=== PATIENT | male | born 1980 | race Caucasian/White ===

== ENCOUNTER 2024-06-24 11:52 | Emergency (ER) | payer OTHER, SELFPAY ==
[2024-06-24 12:14] VITALS: BP 130/77; PULSE 56; TEMP 36.6; O2SAT 99; BMI 26.5
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
== END 2024-06-24 13:22 | disposition home or self-care (01) ==
PROVIDERS: Emergency Provider Emergency Medicine
DX: S53.491A Other sprain of right elbow, initial encounter (principal); S43.491A Other sprain of right shoulder joint, initial encounter; S40.811A Abrasion of right upper arm, initial encounter; V18.0XXA Pedal cycle driver injured in noncollision transport accident in nontraffic accident, initial encounter; S50.811A Abrasion of right forearm, initial encounter
CPT/HCPCS: 73030; 73080; 99283

== ENCOUNTER 2024-08-18 16:40 | Emergency (ER) | payer OTHER, SELFPAY ==
[2024-08-18 16:44] VITALS: BP 108/71; PULSE 66; TEMP 37.1; O2SAT 97; BMI 27.2
--- NOTE | 2024-08-18 16:50 | PC.NURSE ---
h/o Gout and pt states this is his typical Gout flare up
--- NOTE | 2024-08-18 16:51 | ED.EXTPRO1 ---
HPI - Extremity Problem General Chief complaint: Extremity Problem, Nontraumatic Stated complaint: right lower extremity issues Time Seen by Provider: 08/18/24 16:46 Source: patient Mode of arrival: walk-in History of Present Illness HPI Narrative: Patient is a 44-year-old male presents to the ER with concerns of acute gout flare to his right ankle. Patient states he has had this in the past and he is on allopurinol. He denies any recent injury or fever he admits to eating a lot of meat over the holiday weekend and woke up yesterday with pain and swelling similar to prior gout attacks but tried to walk it off. Patient states he does not drink alcohol. He notes continued pain today and was concerned about returning to work. He did hold his allopurinol as previously instructed by his family doctor. Patient appears in no distress but notes moderate pain right ankle worse on palpation. MD Complaint: Reports joint swelling and joint pain; Denies cold extremity Onset (ago): day(s) (2) Pain Consistency: Denies constant or intermittent Location: Reports right Quality: Reports aching Related Data Previous Rx's ?Medication ?Instructions ?Recorded colchicine 0.6 mg capsule 0.6 mg PO DAILY 1 day #1 cap 08/18/24 hydrocodone 5 mg-acetaminophen 325 1 tab PO Q6H PRN pain 2 days #8 08/18/24 mg tablet tabs prednisone 20 mg tablet 40 mg (2 x 20 mg) PO DAILY 5 days 08/18/24 #10 tabs Allergies Allergy/AdvReac Type Severity Reaction Status Date / Time No Known Drug Allergies Allergy Verified 06/24/24 12:13 Review of Systems ROS Constitutional Denies: fever or chills Eyes Denies: change in vision or blurry vision Ears, nose, mouth, and throat Denies: throat pain or neck pain Cardiovascular Denies: chest pain or palpitations Respiratory Denies: shortness of breath, cough or wheezing Gastrointestinal Denies: abdominal pain, nausea or vomiting Musculoskeletal Reports: joint pain (Right ankle); Denies: back pain, neck pain, extremity pain or extremity swelling Integumentary/Breast Denies: rash or itching Neurological Denies: headache Psychiatric Denies: anxiety or mood swings Endocrine Denies: excessive urination PFSH PFSH Social History Little interest or pleasure in doing things: not at all Feeling down, depressed, or hopeless: not at all Exam Narrative Exam Narrative: Vital signs reviewed and nurse's notes. The patient is not hypoxic. General: Alert, no acute distress, patient resting comfortably Skin: warm, intact, no pallor noted Head: Normocephalic, atraumatic Eye: Normal conjunctiva, no exudates Respiratory: No acute distress, lungs CTA Musculoskeletal: No evidence of deformity to ankle, there is minimal amount of swelling. There is no ecchymosis. No erythema or warmth noted. Allodynia present diffuse to the ankle. Compartments are soft. No focal bony tenderness and denies pain with syndesmotic compression of the tib-fib. DP and PT pulses are intact 2+. Normal sensation, normal capillary refill less than 2 seconds. There is no cyanosis or mottling noted. The patient has pain or tenderness to the right knee. The patient has no laxity with varus or valgus stressing. The patient has negative anterior drawer and Abeba testing. The patient was able to flex and extend although with pain. Patient was able to extend leg off the cart without difficulty. No tenderness noted to the 5th MT, midfoot, or proximal fibular area. There is no pain with calcaneal squeeze, achilles tendon is intact and no defect is palpated. The patient has no pelvic instability. The patient has no shortening or rotation noted to the bilateral lower extremities. Neurological: alert and orient x4, normal sensory and motor observed. Psychiatric: Cooperative Constitutional Vital Signs, click to edit/add: Last Vital Signs Temp 98.7 F 08/18/24 16:44 Pulse 66 08/18/24 16:44 Resp 18 08/18/24 16:44 BP 108/71 08/18/24 16:44 Pulse Ox 97 08/18/24 16:44 O2 Del Method Room Air 08/18/24 16:44 Course Vital Signs Vital signs: Vital Signs Temperature 98.7 F 08/18/24 16:44 Pulse Rate 66 08/18/24 16:44 Respiratory Rate 18 08/18/24 16:44 Blood Pressure 108/71 08/18/24 16:44 Pulse Oximetry 97 08/18/24 16:44 Oxygen Delivery Method Room Air 08/18/24 16:44 Temperature 98.7 F 08/18/24 16:44 Pulse Rate 66 08/18/24 16:44 Respiratory Rate 18 08/18/24 16:44 Blood Pressure 108/71 08/18/24 16:44 Pulse Oximetry 97 08/18/24 16:44 Oxygen Delivery Method Room Air 08/18/24 16:44 MDM - Extremity (Nontraumatic) MDM Narrative Medical decision making narrative: Patient is a pleasant 44-year-old male presents to the ER with concerns of right ankle pain. He denies injury. Admits her symptoms of prior gout flare which she has had in the same ankle. Patient notes that his diet likely contributed to this.. Admits that he was eating a lot of meat. He reports prior episodes improved with prednisone and colchicine. He also has appreciated some pain medicine in the past to help with rest and sleep. We discussed his presentation and we will give him first dose of medication here in case he cannot reach the pharmacy before they closed on the weekend. We discussed holding his allopurinol until symptoms resolved. Diet modifications. Patient agreeable to a work note for tomorrow to give symptoms a chance to subside. He denies any fall or injury and declines the need for x-rays and there is no signs or symptoms of infection. The patient is to followup with primary care physician in next 2-3 days or to return to the emergency department should any of the signs or symptoms worsen or new symptoms develop. Patient had questions answered. The patient agrees with the following Diagnosis and Treatment plan and the patient will be discharged home. Discharge Plan Discharge Chief Complaint: Extremity Problem, Nontraumatic Clinical Impression: Acute gout of right ankle Patient Disposition: Home, Self-Care Time of Disposition Decision: 16:52 Condition: Good Mode of Transportation: Private Vehicle Prescriptions / Home Meds: New prednisone 20 mg tablet 40 mg PO DAILY 5 Days Qty: 10 0RF hydrocodone-acetaminophen 5-325 mg tablet 1 tab PO Q6H PRN (Reason: pain) 2 Days Qty: 8 0RF colchicine 0.6 mg capsule 0.6 mg PO DAILY 1 Days Qty: 1 0RF Rx Instructions: take this evening 08/18/24 if pain still present. Print Language: Luxembourgish Instructions: Low Purine Diet (ED), Gout (ED) Additional Instructions: Follow up with your doctor in 3-5 days. Do not work with pain medicine Referrals: Physician,Non-Staff, MD [Primary Care Provider] - 1 week
[2024-08-18] MEDS: PREDNISONE 20 MG TABLET 40 MG PO (17:07)
[2024-08-18] MEDS: COLCHICINE 0.6 MG TABLET 1.2 MG PO (17:07)
[2024-08-18] MEDS: KETOROLAC TROMETHAMINE 60 MG/2 ML VIAL IM (17:08)
== END 2024-08-18 17:16 | disposition home or self-care (01) ==
PROVIDERS: Emergency Provider Emergency Medicine
DX: M10.9 Gout, unspecified (principal); Z79.899 Other long term (current) drug therapy
CPT/HCPCS: 96372; 99284; J1885; J7512

== ENCOUNTER 2024-09-23 11:36 | Emergency (ER) | payer OTHER, SELFPAY ==
[2024-09-23 11:40] VITALS: BP 122/76; PULSE 70; TEMP 36.7; O2SAT 100; BMI 27.2
--- NOTE | 2024-09-23 11:50 | ED.EXTPRO1 ---
HPI - Extremity Problem General Chief complaint: Extremity Problem, Nontraumatic Stated complaint: LOWER EXTERMITY PAIN L KNEE Time Seen by Provider: 09/23/24 11:46 Source: patient Mode of arrival: walk-in History of Present Illness HPI Narrative: Patient presents the ED with a complaint of left knee pain which started 2 days ago. He states he does have a longstanding history of gout. He states he drank alcohol 3 days ago and that started flaring up. He states the pain has flared up similarly in the past. It has been in the same area. He denies any injury. He denies any fever or chills he denies any other pain in his extremity. No numbness or tingling down the leg. He is ambulatory. He denies any cracking or popping in the joint. He denies any other complaints here today. Complaint: Reports extremity swelling Onset (ago): day(s) Pain Consistency: Reports constant Location: Reports left and knee Quality: Reports aching and constant Related Data Previous Rx's ?Medication ?Instructions ?Recorded prednisone 20 mg tablet 20 mg PO BID 5 days #10 tabs 09/23/24 Allergies Allergy/AdvReac Type Severity Reaction Status Date / Time No Known Drug Allergies Allergy Verified 06/24/24 12:13 PFSH PFSH Social History Little interest or pleasure in doing things: not at all Feeling down, depressed, or hopeless: not at all Exam Constitutional Vital Signs, click to edit/add: Last Vital Signs Temp 98.1 F 09/23/24 11:40 Pulse 70 09/23/24 11:40 Resp 18 09/23/24 11:40 BP 122/76 09/23/24 11:40 Pulse Ox 100 09/23/24 11:40 O2 Del Method Room Air 09/23/24 11:40 Documenting provider has reviewed patient's vital signs: yes Common normals: no apparent distress, average body habitus, oriented x3, no limitations, healthy appearing, alert and well nourished Neck & C-Spine Common normals: full ROM Cervical spine: cervical ROM normal Respiratory Common normals: normal respiratory effort and clear to auscultation bilaterally Cardio Common normals: regular rate, regular rhythm and no murmurs Back & Pelvis Common normals: thoracic and lumbar spine normal to inspection, no thoracic nor lumbar tenderness, thoraco-lumbar ROM normal and straight leg raise negative bilaterally Extremity Common normals: full ROM, normal capillary refill, no joint enlargement, no calf tenderness and no pedal edema General: normal exam except as noted Right lower extremity: knee joint; no findings for hip joint, no findings for upper leg, no findings for lower leg, no findings for ankle joint and no findings for foot and digits Neuro Common normals: oriented x3 Sensorium/orientation: awake, alert and oriented to person Psych Common normals: mental status grossly normal, thought process normal, cooperative, affect normal and speech normal Course Vital Signs Vital signs: Vital Signs Temperature 98.1 F 09/23/24 11:40 Pulse Rate 70 09/23/24 11:40 Respiratory Rate 18 09/23/24 11:40 Blood Pressure 122/76 09/23/24 11:40 Pulse Oximetry 100 09/23/24 11:40 Oxygen Delivery Method Room Air 09/23/24 11:40 Temperature 98.1 F 09/23/24 11:40 Pulse Rate 70 09/23/24 11:40 Respiratory Rate 18 09/23/24 11:40 Blood Pressure 122/76 09/23/24 11:40 Pulse Oximetry 100 09/23/24 11:40 Oxygen Delivery Method Room Air 09/23/24 11:40 MDM - Extremity (Nontraumatic) MDM Narrative Medical decision making narrative: Patient presents the ED with a complaint of left knee pain which started 2 days ago. He states he does have a longstanding history of gout. He states he drank alcohol 3 days ago and that started flaring up. He states the pain has flared up similarly in the past. It has been in the same area. He denies any injury. He denies any fever or chills he denies any other pain in his extremity. No numbness or tingling down the leg. He is ambulatory. He denies any cracking or popping in the joint. He denies any other complaints here today. Patient is alert and oriented and resting comfortably on the bed. His right lower extremity is unaffected all of his joints move through range of motion without difficulty he has no palpable tenderness in the hip knee or ankle. Patient's left lower extremity shows no tenderness in the hip joint with good range of motion of the left hip. In his left knee he has tenderness around the patellar tendon. He does have tenderness with movement of the patella. He has no joint line tenderness. He is able to move through range of motion with resistance however knee extension against resistance is painful for him. He does not have any redness or warmth. No signs of joint infection. No calf tenderness. Pulses are equal bilaterally. Good sensation distally. Patient is ambulatory. Patient is not currently on any medication as he does not have a PCP. I refer him to PCP today and advised him to follow-up with soon as possible. Differential includes patellar tendinitis, gout, joint infection, strain, sprain, underlying trauma, Kaleva-Schlatter's, patellar strain. ?Medication ?Instructions ?Recorded colchicine 0.6 mg capsule 0.6 mg PO DAILY 1 day #1 cap 08/18/24 hydrocodone 5 mg-acetaminophen 325 1 tab PO Q6H PRN pain 2 days #8 08/18/24 mg tablet tabs prednisone 20 mg tablet 40 mg (2 x 20 mg) PO DAILY 5 days 08/18/24 #10 tabs Discharge Plan Discharge Stand Alone Forms: Work/School Release Chief Complaint: Extremity Problem, Nontraumatic Clinical Impression: Anterior knee pain Qualifiers: Laterality: left Qualified Code(s): M25.562 - Pain in left knee Patient Disposition: Home, Self-Care Time of Disposition Decision: 12:02 Condition: Good Prescriptions / Home Meds: New prednisone 20 mg tablet 20 mg PO BID 5 Days Qty: 10 0RF Print Language: Indonesian Instructions: Knee Pain (ED) Referrals: Migel Fontenot MD [Physician, Family Practice] - 1 week Referral Note: call for establish of PCP
== END 2024-09-23 12:15 | disposition home or self-care (01) ==
PROVIDERS: Emergency Provider Emergency Medicine
DX: M25.562 Pain in left knee (principal)
CPT/HCPCS: 99283

== ENCOUNTER 2024-10-04 17:58 | Emergency (ER) | payer OTHER, SELFPAY ==
[2024-10-04 18:28] VITALS: BP 121/74; PULSE 70; TEMP 36.6; O2SAT 99; BMI 27.2
--- NOTE | 2024-10-04 20:39 | ED_ITS ---
HPI - Extremity Problem General Chief complaint: Extremity Problem, Nontraumatic Stated complaint: RIGHT KNEE AND ANKLE/ HAS GOUT Time Seen by Provider: 10/04/24 20:27 Source: patient Mode of arrival: walk-in Limitations: no limitations History of Present Illness HPI Narrative: Patient presents to the ED with a complaint of left knee pain which started 3 days ago. He states he does have a longstanding history of gout. He states he believes working out in the heat triggers this issue. He states the pain has flared up similarly in the past. It has been in the same are of the right knee and ankle. He denies any injury. He denies any fever or chills he denies any other pain in his extremity. No numbness or tingling down the leg. He is ambulatory. He denies any cracking or popping in the joint. He denies any other complaints here today. Last episode was seen here on 09/23/2024 Related Data Previous Rx's ?Medication ?Instructions ?Recorded prednisone 20 mg tablet 20 mg PO BID 5 days #10 tabs 09/23/24 colchicine 0.6 mg capsule 0.6 mg PO DAILY #4 caps 09/14 04/09 indomethacin 50 mg capsule 50 mg PO BID PRN pain in addison int 10/04/24 #14 caps Allergies Allergy/AdvReac Type Severity Reaction Status Date / Time No Known Drug Allergies Allergy Verified 10/04/24 18:27 PFSH PFSH Social History Little interest or pleasure in doing things: not at all Feeling down, depressed, or hopeless: not at all Exam Constitutional Vital Signs, click to edit/add: Last Vital Signs Temp 97.8 F 10/04/24 18:28 Pulse 70 10/04/24 18:28 Resp 16 10/04/24 18:28 BP 121/74 10/04/24 18:28 Pulse Ox 99 10/04/24 18:28 O2 Del Method Room Air 10/04/24 18:28 Documenting provider has reviewed patient's vital signs: yes Common normals: no apparent distress, average body habitus, oriented x3 and no limitations Chest Common normals: inspection of chest normal and palpation of chest normal Respiratory Common normals: normal respiratory effort and clear to auscultation bilaterally Back & Pelvis Common normals: no CVA tenderness, thoracic and lumbar spine normal to inspection, no thoracic nor lumbar tenderness, thoraco-lumbar ROM normal and straight leg raise negative bilaterally Extremity General: normal exam except as noted Right lower extremity: knee joint (pain and swelling) and ankle joint (pain and swelling) Neuro Common normals: oriented x3 Course Vital Signs Vital signs: Vital Signs Temperature 97.8 F 10/04/24 18:28 Pulse Rate 70 10/04/24 18:28 Respiratory Rate 16 10/04/24 18:28 Blood Pressure 121/74 10/04/24 18:28 Pulse Oximetry 99 10/04/24 18:28 Oxygen Delivery Method Room Air 10/04/24 18:28 Temperature 97.8 F 10/04/24 18:28 Pulse Rate 70 10/04/24 18:28 Respiratory Rate 16 10/04/24 18:28 Blood Pressure 121/74 10/04/24 18:28 Pulse Oximetry 99 10/04/24 18:28 Oxygen Delivery Method Room Air 10/04/24 18:28 MDM - Extremity (Nontraumatic) MDM Narrative Medical decision making narrative: Patient presents to the ED with a complaint of left knee pain which started 3 days ago. He states he does have a longstanding history of gout. He states he believes working out in the heat triggers this issue. He states the pain has flared up similarly in the past. It has been in the same are of the right knee and ankle. He denies any injury. He denies any fever or chills he denies any other pain in his extremity. No numbness or tingling down the leg. He is ambulatory. He denies any cracking or popping in the joint. He denies any other complaints here today. Last episode was seen here on 09/23/2024 Patient is alert and oriented and resting comfortably in the chair. His left lower extremity is unaffected all of his joints move through range of motion without difficulty he has no palpable tenderness in the hip knee or ankle. Patient's right lower extremity shows no tenderness in the hip joint with good range of motion of the left hip. In his right knee he has tenderness around the patellar tendon. He does have tenderness with movement of the patella. He has no joint line tenderness. He is able to move through range of motion with resistance however knee extension against resistance is painful for him. He does not have any redness or warmth. No signs of joint infection. No calf tenderness. Pulses are equal bilaterally. Good sensation distally. Patient is ambulatory. NO calf tenderness, redness, or signs of DVT. Patient is not currently on any medication as he does not have a PCP. I refer him to PCP today and advised him to follow-up with soon as possible. Differential includes patellar tendinitis, gout, joint infection, strain, sprain, underlying trauma, [place]-Schlatter's, patellar strain. Strongly recommended follow-up with PCP as this would be better management long-term. He has been seen multiple times here in this ED for this type of symptom. He did ask for a work note as well. That was provided. I discussed with him he was already on steroids in last month so I do not want to continue prednisone. I will give him some Indocin and the colchicine. He is to return with significant changes or concerns and contact PCP immediately for follow-up Discharge Plan Discharge Chief Complaint: Extremity Problem, Nontraumatic Clinical Impression: Acute knee pain, History of acute gouty arthritis Patient Disposition: Home, Self-Care Time of Disposition Decision: 20:45 Condition: Good Prescriptions / Home Meds: New colchicine 0.6 mg capsule 0.6 mg PO DAILY Qty: 4 0RF Rx Instructions: two capsules as loading dose then 1 tablet every 1-2 hours. Max of three doses. indomethacin 50 mg capsule 50 mg PO BID PRN (Reason: pain in joint ) Qty: 14 0RF Rx Instructions: administer with food or milk No Action prednisone 20 mg tablet 20 mg PO BID 5 Days Qty: 10 0RF Print Language: Estonian Additional Instructions: Strongly recommend PCP follow up as this issue has had multiple visits at this point. The PCP would be better at helping these flare ups from coming back and give you consistent follow up. however, please return with any worsening or concerning symptoms at this time. Thank you for allowing [facility] ED to participate in your care. Referrals: Physician,Non-Staff, [Primary Care Provider] - 1 week Discharge Date/Time: 10/04/24 21:02
== END 2024-10-04 21:02 | disposition home or self-care (01) ==
PROVIDERS: Emergency Provider Internal Medicine
DX: M25.569 Pain in unspecified knee (principal)
CPT/HCPCS: 99283

== ENCOUNTER 2024-10-29 06:59 | Emergency (ER) | payer OTHER, SELFPAY ==
[2024-10-29 07:05] VITALS: BP 119/82; PULSE 62; TEMP 36.6; O2SAT 98; BMI 27.2
--- NOTE | 2024-10-29 07:23 | ED.EXTPRO1 ---
HPI - Extremity Problem General Chief complaint: Extremity Problem, Nontraumatic Stated complaint: RT KNEE/ANKLE PAIN Time Seen by Provider: 10/29/24 07:12 Source: patient Mode of arrival: walk-in Limitations: no limitations History of Present Illness HPI Narrative: The patient is a 44-year-old male is coming to the ER for what he is saying is a gout attack according to the patient the patient have a history of taking allopurinol as a baseline but since he moved here from [place] he does not have his main medication, the patient mentioned that he has been having flareup almost every other month, the patient have right knee and right ankle pain He has been decreasing his beer intake and he still eats red meat daily, the patient hydrate very well as well He denies any fall or trauma Related Data Previous Rx's ?Medication ?Instructions ?Recorded prednisone 20 mg tablet 20 mg PO BID 5 days #10 tabs 09/23/24 colchicine 0.6 mg capsule 0.6 mg PO DAILY #4 caps 10/04/24 indomethacin 50 mg capsule 50 mg PO BID PRN pain in joint 10/04/24 #14 caps allopurinol 100 mg tablet 100 mg PO DAILY #30 tabs 10/29/24 colchicine 0.6 mg tablet 0.6 mg PO BID PRN pain #10 tabs 10/29/24 prednisone 20 mg tablet 40 mg (2 x 20 mg) PO DAILY 5 days 10/29/24 #10 tabs Allergies Allergy/AdvReac Type Severity Reaction Status Date / Time No Known Drug Allergies Allergy Verified 10/29/24 07:05 Review of Systems ROS Status of ROS 10 or more systems reviewed and unremarkable except as noted in history and below PFSH PFSH Social History Little interest or pleasure in doing things: not at all Feeling down, depressed, or hopeless: not at all Exam Narrative Exam Narrative: Nurses notes and vital signs reviewed and patient is not hypoxic. General: Well-appearing and in no apparent distress. Skin: Warm, dry, no pallor noted. No rash. Lower extremity: The patient have right knee and ankle mild inflammation no redness no hotness no ecchymosis and the patient have a mild effusion. With full range of movement in the ankle and the knee Constitutional Vital Signs, click to edit/add: Last Vital Signs Temp 98 F 10/29/24 07:05 Pulse 62 10/29/24 07:05 Resp 16 09/16/25 07:05 BP 119/82 10/29/24 07:05 Pulse Ox 98 10/29/24 07:05 O2 Del Method Room Air 10/29/24 07:05 Course Vital Signs Vital signs: Vital Signs Temperature 98 F 10/29/24 07:05 Pulse Rate 62 10/29/24 07:05 Respiratory Rate 16 10/29/24 07:05 Blood Pressure 119/82 10/29/24 07:05 Pulse Oximetry 98 10/29/24 07:05 Oxygen Delivery Method Room Air 10/29/24 07:05 Temperature 98 F 10/29/24 07:05 Pulse Rate 62 10/29/24 07:05 Respiratory Rate 16 10/29/24 07:05 Blood Pressure 119/82 10/29/24 07:05 Pulse Oximetry 98 10/29/24 07:05 Oxygen Delivery Method Room Air 10/29/24 07:05 MDM - Extremity (Nontraumatic) MDM Narrative Medical decision making narrative: The patient presentation could be secondary to gout attack although it is mostly arthritis as well The patient was started on colchicine and prednisone and discharged home to take allopurinol after 10 days from this presentation Patient referred to the primary care as outpatient Instructed about continuous hydration and decreasing red meat intake The patient is to follow up with primary care physician in next 2-3 days or to return to the emergency department should any of the signs or symptoms worsen or new symptoms develop. The patient agrees with the following Diagnosis and Treatment plan and the patient will be discharged home. Discharge Plan Discharge Chief Complaint: Extremity Problem, Nontraumatic Clinical Impression: Gout attack Patient Disposition: Home, Self-Care Time of Disposition Decision: 07:23 Condition: Good Mode of Transportation: Private Vehicle Prescriptions / Home Meds: New prednisone 20 mg tablet 40 mg PO DAILY 5 Days Qty: 10 0RF colchicine 0.6 mg tablet 0.6 mg PO BID PRN (Reason: pain) Qty: 10 0RF allopurinol 100 mg tablet 100 mg PO DAILY Qty: 30 0RF No Action prednisone 20 mg tablet 20 mg PO BID 5 Days Qty: 10 0RF colchicine 0.6 mg capsule 0.6 mg PO DAILY Qty: 4 0RF Rx Instructions: two capsules as loading dose then 1 tablet every 1-2 hours. Max of three doses. indomethacin 50 mg capsule 50 mg PO BID PRN (Reason: pain in joint ) Qty: 14 0RF Rx Instructions: administer with food or milk Print Language: [place] Instructions: Gout (ED) Referrals: Physician,Non-Staff, MD [Primary Care Provider] - 1 week Discharge Date/Time: 10/29/24 07:37
[2024-10-29] MEDS: PREDNISONE 20 MG TABLET 40 MG PO (07:34)
== END 2024-10-29 07:37 | disposition home or self-care (01) ==
PROVIDERS: Emergency Provider Emergency Medicine
DX: M10.9 Gout, unspecified (principal)
CPT/HCPCS: 99283; J7512